=== PATIENT | female | born 1980 | race Caucasian/White ===

== ENCOUNTER 2020-03-27 12:08 | Outpatient (RCR) | payer MEDICARE, BC, SELFPAY ==
--- NOTE | 2020-03-20 09:28 | PCWOUND ---
WOCN NOTE Patient did not show up for appointment.called and rescheduled her for next week.
[2020-03-27 16:06] VITALS: BMI 35.7
--- NOTE | 2020-04-05 13:38 | PCWOUND ---
wocn note patient did not show up for appointment, left message to reschedule.
== END 2020-06-11 08:37 | disposition home or self-care (01) ==
LOC: ANHWOC 12:08
PROVIDERS: PCP Family Medicine; Visit Provider Family Medicine
DX: I87.2 Venous insufficiency (chronic) (peripheral) (principal)
CPT/HCPCS: 99213; G0463

== ENCOUNTER 2020-08-02 12:00 | Outpatient (RCR) | payer MEDICARE, BC, SELFPAY ==
--- NOTE | 2020-07-04 14:26 | PCWOUND ---
WOCN NOTE patient with venous stasis ulcers to the bilateral lower legs. To the left leg there are 8 isolated spots with the largest noted on the order form. It takes 1 mepilex transfer, 1 ABD pad and 1 roll of kerlex to cover. To the right lower leg she has large area of maceration and 2 isolated ulcers on the posterior leg, it takes 2 mepilex transfers, 2 ABD pads and 1 roll of kerlex to cover.
--- NOTE | 2020-07-31 07:55 | PCWOUND ---
WOCN NOTE patient called and cancelled appointment due to family emergency. rescheduled for .
--- NOTE | 2020-08-16 11:30 | PCWOUND ---
WOCN NOTE Patient called and cancel appointment for today due to weather. rescheduled for next .
--- NOTE | 2020-08-23 14:00 | PCWOUND ---
WOCN NOTE Patient did not show up or call to cancel appointment.
== END 2020-09-17 08:23 | disposition home or self-care (01) ==
LOC: ANHWOC 12:00
PROVIDERS: PCP Family Medicine; Visit Provider Family Medicine
DX: S81.801D Unspecified open wound, right lower leg, subsequent encounter (principal)
CPT/HCPCS: 99213; 99214; G0463

== ENCOUNTER 2020-08-13 02:05 | Emergency (ER) | payer MEDICARE, BC, SELFPAY ==
[2020-08-13 02:08] VITALS: BP 146/83; PULSE 90; RESP 18; TEMP 36.4; O2SAT 99
[2020-08-13] MEDS: oxyCODONE HCL (*CRX) 5 MG TAB IR PO (02:40)
--- NOTE | 2020-08-13 03:42 | ED.LOWEXIN ---
HPI - Extremity Injury (Lower) General Chief Complaint: Extremity Injury, Lower Stated Complaint: leg pain Time Seen by Provider: 08/13/20 02:19 History of Present Illness HPI Narrative: Patient is a 40-year-old female who presents ER with lower extremity pain. 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 She follows with wound care. Patient takes [place] for pain. She gets it 1 month at a time. Unfortunately she is used up her allotment will not get another refill for another week to week and a half. No new swelling or redness of the legs. Related Data Home Medications Medication Instructions Recorded Confirmed cinacalcet [Sensipar] 60 mg PO DAILY 05/19/19 03/27/20 sevelamer carbonate [Renvela] 3,200 mg PO TID 05/19/19 03/27/20 warfarin 15 mg PO DAILY 08/13/20 Allergies Allergy/AdvReac Type Severity Reaction Status Date / Time cefazolin Allergy Severe Stopped Verified 03/15/20 10:07 Breathing Sulfa (Sulfonamide Allergy Unknown Unknown Verified 03/15/20 10:07 Antibiotics) vancomycin Allergy Unknown Unknown Verified 03/15/20 10:07 cefepime Allergy rash Verified 03/15/20 10:07 Review of Systems Constitutional: Constitutional: Denies chills, Denies fever(s) and Denies weakness Musculoskeletal: Musculoskeletal: Denies back pain, Denies arthralgias, Denies joint swelling and Denies muscle cramps Comments: Chronic leg pain Integumentary/Breasts: Skin/Breast: Denies pruritus, Denies rash and Reports skin ulcer (Chronic) [facility] Past Medical History Medical History (Updated 08/13/20 @ 03:45 by Gregor Covarrubias MD) Bronchitis Dialysis patient AGUIAR (dyspnea on exertion) Fistula Renal disease Skin pain Smoking Stage 4 chronic kidney disease Surgical History Surgical History H/O heart valve replacement with mechanical valve History of cholecystectomy History of thyroidectomy Hx of tubal ligation Family History Family History Mother Family history of osteoporosis Asthma Family history of kidney disease Father Family history of blood dyscrasia Asthma Other Diabetes mellitus Family history of cardiovascular disease Social History Social History Smoking packs per day: 0.5 Smoking cigarettes per day: 10.0 Years smoked: 25 Smoking pack-years: 12.50 Smoking status: Current every day smoker Second hand tobacco smoke exposure: Yes Alcohol intake: never Gender identity (if verbalized by the patient): Female Exam Narrative: Exam Narrative: GENERAL: Well-appearing, well-nourished, and in no acute distress. HEAD: Normocephalic, atraumatic. EXTREMITIES: Normal range of motion. Chronic venous stasis changes to lower extremities. SKIN: Warm, dry, no rash. Calciphylaxis to the legs bilaterally without evidence of cellulitis or necrosis. No deep tunneling. NEURO: Alert and oriented x3. PSYCH: Normal mood and affect. Course Course Emergency Course: Oxycodone x1. Will not give any additional medications given the fact that she has not adhered to her chronic pain schedule. Vital Signs Vital signs: Vital Signs Temperature 97.5 F L 08/13/20 02:08 Pulse Rate 90 08/13/20 02:08 Respiratory Rate 18 08/13/20 02:08 Blood Pressure 146/83 H 08/13/20 02:08 Pulse Oximetry 99 08/13/20 02:08 Temperature 97.5 F L 08/13/20 02:08 Pulse Rate 90 08/13/20 02:08 Respiratory Rate 18 08/13/20 02:08 Blood Pressure 146/83 H 08/13/20 02:08 Pulse Oximetry 99 08/13/20 02:08 Discharge Plan Discharge Clinical Impression: Calciphylaxis Patient Disposition: Home, Self-Care Condition: Stable Instructions: Chronic Wounds (ED) Additional Instructions: Return the ER if you have chest pain or shortness of breath, you cannot keep down food or water,
[2020-08-13 04:00] VITALS: BP 152/97; PULSE 86; RESP 18; O2SAT 99
== END 2020-08-13 04:02 | disposition home or self-care (01) ==
PROVIDERS: Emergency Provider Emergency Medicine; PCP Family Medicine
DX: E83.59 Other disorders of calcium metabolism (principal); N18.6 End stage renal disease; Z99.2 Dependence on renal dialysis; Z95.2 Presence of prosthetic heart valve; Z79.01 Long term (current) use of anticoagulants; E89.0 Postprocedural hypothyroidism; F17.210 Nicotine dependence, cigarettes, uncomplicated
CPT/HCPCS: 99283; A9270

== ENCOUNTER 2021-05-22 15:30 | Emergency (ER) | payer MEDICARE, BC, SELFPAY ==
--- NOTE | ~2021-05-22 | XR_ITS ---
EXAMINATION: XR chest 1V portable DATE: 05/22/2021 16:35 INDICATION: Shortness of breath and cough TECHNIQUE: frontal view of the chest was obtained. COMPARISON: Chest radiograph dated 03/16/2019 FINDINGS: Opacities in the right mid to lower lung zone with blunting at the costophrenic angle. Left lung erin ins clear. Cardiomegaly with pulmonary vascular congestion but without julia pulmonary edema. Median sternotomy wires with cardiac valve repairs likely mitral and tricuspid. IMPRESSION: 1. Opacities in the right mid to lower lung zone. Unclear whether this includes elevation of the righ t hemidiaphragm and small right pleural effusion or a moderate-sized subpulmonic effusion with associ ated atelectasis and/or pneumonia. 2. Cardiomegaly with pulmonary vascular congestion but without julia pulmonary edema. Reviewed, dictated and finalized at location A. IAL DUTY NURSE IMPRESSION: 1. Opacities in the right mid to lower lung zone. Unclear whether this includes elevation of the right hemidiaphragm and small right pleural effusion or a mod erate-sized subpulmonic effusion with associated atelectasis and/or pneumonia. 2. Cardiomegaly with pulmonary vascular congestion but without julia pulmonary edema.
[2021-05-22 15:32] VITALS: BP 121/62; PULSE 96; RESP 14; TEMP 36.7; O2SAT 95
[2021-05-22 15:55] VITALS: BP 112/62; PULSE 92; RESP 22; O2SAT 95
--- NOTE | 2021-05-22 16:19 | ECG_ITS ---
Measurements Intervals [place] Rate: 90 P: 98 SD: 107 QRS: 46 QRSD: 97 T: 92 QT: 397 QTc: 487 Interpretive Statements SINUS RHYTHM WITH SHORT SD INTERVAL INCOMPLETE RIGHT BUNDLE BRANCH BLOCK LOW QRS VOLTAGE IN PRECORDIAL LEADS BORDERLINE T WAVE ABNORMALITY- ANT/HIGH LAT LEADS BASELINE ARTIFACT- I, II, III, AVR, AVL,A VF, V3-V6 BORDERLINE ECG Electronically Signed On 05-22-2021 19:53:33 FIELD AIDE by Carlos Grant D.O.
[2021-05-22 16:49] LABS: Basophils Absolute Auto 0.1 K/mm3 (0.0-0.1); Basophils Percent Auto 2.1 % (0.2-1.2); Eosinophils Absolute Auto 0.4 K/mm3 (0-0.3); Eosinophils Percent Auto 7.6 % (0-4.4); Hematocrit 30.1 % (37.0-47.0); Hemoglobin 9.9 g/dL (12.0-15.0); Immature Granulocyte Absolute 0.02 K/mm3 (0.00-0.031); Immature Granulocyte Percent A 0.4 % (0-0.5); Lymphocytes Absolute Auto 0.79 K/mm3 (0.9-3.2); Mean Corpuscular HGB Conc 32.9 g/dl (32-36); Mean Corpuscular Hemoglobin 31.2 pg (26-34); Mean Platelet Volume 9.3 fl (7.4-10.4); Monocytes Absolute Auto 0.4 K/mm3 (0.1-0.6); Neutrophils Absolute Auto 3.5 K/mm3 (1.3-6.7); Neutrophils Percent Auto 66.9 % (45.5-73.1); Platelet Count Result 158 k/mm3 (150-375); Red Blood Count 3.17 M/mm3 (4.2-5.4); Red Cell Distribution Width 15.6 % (11.5-14.5); White Blood Count 5.3 K/mm3 (4.5-10.0)
[2021-05-22] MEDS: IPRATROPIUM BR 0.02% INH SOLN 0.5 MG/2.5 ML VIAL INHALATION (17:01)
[2021-05-22] MEDS: ALBUTEROL SULFATE NEB 2.5 MG/0.5 ML INH 5 MG INHALATION (17:02)
[2021-05-22 17:04] LABS: Alanine Aminotransferase 11 U/L (4-35); Albumin Level 4.2 g/dL (3.5-5.1); Alkaline Phosphatase 230 U/L (38-126); Anion Gap 6 mmol/L (8-16); Aspartate Amino Transferase 29 U/L (14-36); Bilirubin,Total 2.2 mg/dL (0.2-1.3); Blood Urea Nitrogen 17 mg/dL (7-17); Calcium 9.7 mg/dL (8.4-10.2); Carbon Dioxide 39 mmol/L (22-30); Chloride 92 mmol/L (98-107); Estimated CRCL calculation 20 ml/min; Estimated Glomerular Filt Rate 13; Glucose 91 mg/dL (65-110); Potassium 3.6 mmol/L (3.4-5.0); Sodium 137 mmol/L (137-145)
[2021-05-22 17:16] LABS: Troponin I 0.028 ng/mL (0.000-0.034)
--- NOTE | 2021-05-22 17:28 | ED.SOB ---
HPI - SOB/Dyspnea General Chief Complaint: Shortness of Breath/Dyspnea Stated Complaint: sob, dialysis pt Time Seen by Provider: 05/22/21 16:14 Source: patient and family Mode of arrival: ambulatory Limitations: no limitations History of Present Illness HPI Narrative: 41-year-old with a history of hypertension ESRD on hemodialysis, smoker here with complaints of shortness of breath since last few days. She denies any fever or chills. Has occasional nonproductive cough. Patient states that she had a dialysis this morning. MD elicited complaint: shortness of breath Related Data Home Medications Medication Instructions Recorded Confirmed cinacalcet [Sensipar] 60 mg PO DAILY 05/19/19 03/27/20 sevelamer carbonate [Renvela] 3,200 mg PO TID 05/19/19 03/27/20 Allergies Allergy/AdvReac Type Severity Reaction Status Date / Time cefazolin Allergy Severe Stopped Verified 03/15/20 10:07 Breathing Sulfa (Sulfonamide Allergy Unknown Unknown Verified 03/15/20 10:07 Antibiotics) vancomycin Allergy Unknown Unknown Verified 03/15/20 10:07 cefepime Allergy rash Verified 03/15/20 10:07 Review of Systems Review of Systems: All systems reviewed & are unremarkable except as noted in HPI and below Constitutional: Constitutional: Reports no additional constitutional complaints Eyes: Eyes: Reports no additional eye complaints ENT: Reports system reviewed and no additional complaints, except as documented Cardiovascular: Cardiovascular: Reports no additional cardiovascular complaints Respiratory: Respiratory: Reports as per HPI Gastrointestinal: Gastrointestinal: Reports no additional gastrointestinal complaints Musculoskeletal: Musculoskeletal: Reports no additional musculoskeletal complaints Neurologic: Reports system reviewed and no additional complaints, except as documented [facility] Past Medical History Medical History (Updated 05/22/21 @ 17:31 by Gideon Knutson MD) Bronchitis Dialysis patient AGUIAR (dyspnea on exertion) Fistula Renal disease Skin pain Smoking Stage 4 chronic kidney disease Surgical History Surgical History H/O heart valve replacement with mechanical valve History of cholecystectomy History of thyroidectomy Hx of tubal ligation Family History Family History Mother Family history of osteoporosis Asthma Family history of kidney disease Father Family history of blood dyscrasia Asthma Other Diabetes mellitus Family history of cardiovascular disease Social History Social History Smoking packs per day: 0.5 Smoking cigarettes per day: 10.0 Years smoked: 25 Smoking pack-years: 12.50 Smoking status: Current every day smoker Second hand tobacco smoke exposure: Yes Alcohol intake: never Gender identity (if verbalized by the patient): Female Exam Narrative: GENERAL: well-appearing, well-nourished, and in no acute distress. HEAD: Normocephalic, atraumatic. EYES: PERRLA and EOMI. ENT: Nares clear, no rhinorrhea or epistaxis. Mucous membranes moist. NECK: Supple. CHEST: Decreased air entry, mild wheeze. HEART: Regular rate and rhythm. No murmur heard. Normal peripheral pulses. ABDOMEN: Soft, nontender, nondistended, normal active bowel sounds. EXTREMITIES: Normal range of motion. No edema. SKIN: Warm, dry, no rash. NEURO: No focal deficits. Alert and oriented x3. PSYCH: Normal mood and affect. Course Course Emergency Course: Patient feeling much better after nebulizer treatment. Informed her about her lab work, chest x-ray findings. advised her to quit smoking , continue home medications. Vital Signs Vital signs: Vital Signs Temperature 36.7 C 05/22/21 15:32 Pulse Rate 96 05/22/21 15:32 Respiratory Rate 14 05/22/21 15:32 Blood Pressure 121/62 05/22/21 15:32 Pulse Oximetry 95
[2021-05-22 17:41] VITALS: BP 109/61; PULSE 89; RESP 20; O2SAT 94
[2021-05-22 18:06] VITALS: BP 115/66; PULSE 86; RESP 22; O2SAT 94
== END 2021-05-22 18:07 | disposition home or self-care (01) ==
PROVIDERS: Emergency Provider Family Medicine; PCP Family Medicine
DX: J44.9 Chronic obstructive pulmonary disease, unspecified (principal); N18.6 End stage renal disease; Z99.2 Dependence on renal dialysis; F17.210 Nicotine dependence, cigarettes, uncomplicated
CPT/HCPCS: 36415; 71045; 80053; 84484; 85025; 93005; 94640; 99284

== ENCOUNTER 2021-06-15 16:08 | Observation (INO) | payer MEDICARE, BC, SELFPAY ==
[2021-06-15] VITALS (27 sets, daily range): BP systolic 96–148; BP diastolic 52–90; PULSE 69–90; RESP 15–36; TEMP 36.3; O2SAT 94–100; BMI 30.9
--- NOTE | ~2021-06-15 | XR_ITS ---
EXAMINATION: XR chest 1V portable EXAM DATE: 06/15/2021 16:43 INDICATION: Chest pain. TECHNIQUE: Portable AP frontal chest x-ray was obtained. Comparison is made to prior examination from 05/22/2021. FINDINGS: Small to moderate-sized right pleural effusion with adjacent atelectasis. There is cardiome shane and pulmonary vascular congestion. Sternotomy wires are present without findings to suggest ster nal dehiscence. Cardiac valve replacement. IMPRESSION: 1. Cardiomegaly, pulmonary vascular congestion and small to moderate pleural effusion. 2. Adjacent basilar segmental atelectasis. Pneumonia not excludable. Reviewed, dictated and finalized at location A. NDING PSYCHIATRIST IMPRESSION: 1. Cardiomegaly, pulmonary vascular congestion and small to moderate pleural e ffusion. 2. Adjacent basilar segmental atelectasis. Pneumonia not excludable.
--- NOTE | 2021-06-15 16:11 | ECG_ITS ---
Measurements Intervals [place] Rate: 86 P: 104 ME: 109 QRS: 26 QRSD: 88 T: 31 QT: 402 QTc: 482 Interpretive Statements SINUS RHYTHM WITH SHORT ME INTERVAL BORDERLINE ST-T WAVE ABNORMALITY- HIGH LATERAL LEADS BASELINE ARTIFACT- I, II, III, V4-V6 BORDERLINE ECG Electronically Signed On 06-15-2021 17:05:07 DURABILITY TECHNICIAN by Carlos Grant D.O.
[2021-06-15 16:29] LABS: Basophils Absolute Auto 0.1 K/mm3 (0.0-0.1); Basophils Percent Auto 1.5 % (0.2-1.2); Eosinophils Absolute Auto 0.5 K/mm3 (0-0.3); Eosinophils Percent Auto 9.7 % (0-4.4); Hematocrit 34.4 % (37.0-47.0); Hemoglobin 11.1 g/dL (12.0-15.0); Immature Granulocyte Absolute 0.01 K/mm3 (0.00-0.031); Immature Granulocyte Percent A 0.2 % (0-0.5); Lymphocytes Absolute Auto 0.76 K/mm3 (0.9-3.2); Lymphocytes Percent Auto 13.9 % (18.3-44.2); Mean Corpuscular HGB Conc 32.3 g/dl (32-36); Mean Corpuscular Hemoglobin 30.8 pg (26-34); Mean Corpuscular Volume 95.6 fl (80-100); Mean Platelet Volume 9.4 fl (7.4-10.4); Monocytes Absolute Auto 0.7 K/mm3 (0.1-0.6); Monocytes Percent Auto 11.9 % (2.6-8.5); Neutrophils Absolute Auto 3.5 K/mm3 (1.3-6.7); Neutrophils Percent Auto 62.8 % (45.5-73.1); Platelet Count Result 146 k/mm3 (150-375); Red Cell Distribution Width 15.7 % (11.5-14.5); White Blood Count 5.5 K/mm3 (4.5-10.0)
[2021-06-15 16:40] LABS: Alanine Aminotransferase 14 U/L (4-35); Albumin Level 4.4 g/dL (3.5-5.1); Alkaline Phosphatase 248 U/L (38-126); Anion Gap 10 mmol/L (8-16); Aspartate Amino Transferase 37 U/L (14-36); Bilirubin,Total 2.3 mg/dL (0.2-1.3); Blood Urea Nitrogen 38 mg/dL (7-17); Calcium 9.7 mg/dL (8.4-10.2); Carbon Dioxide 37 mmol/L (22-30); Chloride 88 mmol/L (98-107); Estimated CRCL calculation 13 ml/min; Estimated Glomerular Filt Rate 8; Glucose 94 mg/dL (65-110); INR 3.3; Lipase 216 U/L (23-300); Potassium 4.5 mmol/L (3.4-5.0); Prothrombin Time 32.4 Seconds (11.1-14.7); Sodium 135 mmol/L (137-145)
[2021-06-15 16:41] LABS: Partial Thromboplastin Time 55.9 SECONDS (22.3-36.8)
--- NOTE | 2021-06-15 17:43 | ED.GENADULT ---
HPI - General Adult General Chief complaint: Chest Pain Stated complaint: chest pain -SOB last night Time Seen by Provider: 06/15/21 16:23 History of Present Illness HPI narrative: Patient is a 41-year-old female who presents ER with chest pain or shortness of breath. Chest pain is intermittent on the left side. Still nonradiating. Last for couple seconds at a time. Patient also endorses shortness of breath that is worse with laying back. She started to develop coughing with laying back as well. She endorses exertional dyspnea. She has history of end-stage renal disease and underwent dialysis yesterday. She reports she is 12 pounds heavier than her typical weight. She is unsure that they got enough fluid off of her. Her food service substitute is Dr. Lutz. Patient reports compliance with home medications. She is anuric. Related Data Home Medications Medication Instructions Recorded Confirmed cinacalcet [Sensipar] 60 mg PO DAILY 05/19/19 03/27/20 sevelamer carbonate [Renvela] 3,200 mg PO TID 05/19/19 03/27/20 Allergies Allergy/AdvReac Type Severity Reaction Status Date / Time cefazolin Allergy Severe Stopped Verified 06/15/21 18:11 Breathing Sulfa (Sulfonamide Allergy Unknown Unknown Verified 06/15/21 18:11 Antibiotics) vancomycin Allergy Unknown Unknown Verified 06/15/21 18:11 cefepime Allergy rash Verified 06/15/21 18:11 Review of Systems Review of Systems: All systems reviewed & are unremarkable except as noted in HPI and below Constitutional: Constitutional: Denies chills, Denies fever(s) and Denies weakness ENT: Denies nasal congestion and Denies sore throat Cardiovascular: Cardiovascular: Reports chest pain, Denies rapid heart rate and Denies radiating jaw, neck or arm pain Respiratory: Respiratory: Denies chest congestion, Reports cough, Reports dyspnea and Denies wheezing Gastrointestinal: Gastrointestinal: Denies abdominal pain, Denies diarrhea, Denies nausea and Denies vomiting [facility] Past Medical History Medical History (Updated 06/15/21 @ 20:08 by Gregor Covarrubias MD) Bronchitis Dialysis patient AGUIAR (dyspnea on exertion) Fistula Renal disease Skin pain Smoking Stage 4 chronic kidney disease Surgical History Surgical History H/O heart valve replacement with mechanical valve History of cholecystectomy History of thyroidectomy Hx of tubal ligation Family History Family History Mother Family history of osteoporosis Asthma Family history of kidney disease Father Family history of blood dyscrasia Asthma Other Diabetes mellitus Family history of cardiovascular disease Social History Social History Smoking packs per day: 0.5 Smoking cigarettes per day: 10.0 Years smoked: 25 Smoking pack-years: 12.50 Smoking status: Current every day smoker Second hand tobacco smoke exposure: Yes Alcohol intake: never Gender identity (if verbalized by the patient): Female Exam Narrative: GENERAL: Chronically ill-appearing, well-nourished, and in no acute distress. HEAD: Normocephalic, atraumatic. EYES: PERRL and EOMI. ENT: Mucous membranes moist. CHEST: Bibasilar rales noted. No respiratory distress. HEART: Regular rate and rhythm. Normal peripheral pulses. ABDOMEN: Soft, nontender, nondistended. EXTREMITIES: Normal range of motion. Chronic venous stasis changes. SKIN: Warm, dry, calciphylaxis most prominent in the lower extremities but also present throughout the abdomen and upper extremities. NEURO: Alert and oriented x3. PSYCH: Normal mood and affect. Course Course Emergency Course: Patient will be admitted to the hospitalist service. Nephrology consulted and will arrange dialysis for tomorrow. Vital Signs Vital signs: Vital Signs Pulse Rate 88 06/15/21 16:14 Respiratory Rate 20 06/15/21 16:1
--- NOTE | 2021-06-15 18:30 | PM.IMHP ---
H&P: HPI History of Present Illness Date/Time: 06/15/21 18:30 Chief Complaint: Chest pain and shortness of breath. Narrative: This is a pleasant 41-year-old female with end-stage renal disease on hemodialysis and history of mechanical mitral valve replacement on long-term anticoagulation who presented to the emergency department earlier today for evaluation of chest pain and shortness of breath. Last evening simply while sitting down she developed an aching discomfort in her left anterior chest which was self-limiting and resolved within approximately 2 minutes time. She has had similar, intermittent episodes of left anterior chest discomfort since that time, all resolving without intervention. Additionally she has felt a bit more short of breast today than usual and reports being 12 lb heavier today than when she waited for dialysis yesterday. She is not necessarily more short of breath with this chest discomfort and she denies associated nausea, vomiting, and sweats. She has pretty significant and chronic lower extremity edema which she states is unchanged. She denies calf pain and tenderness. She reports compliance with her warfarin and INR today is 3.3. She has no history of coronary artery disease and she has not had exertional chest pain. At the time my evaluation she has no specific complaints but did have a brief episode of chest discomfort. Review of Systems Review of Systems: Twelve systems were reviewed. No fever, chills, or sweats. No recent cold or flu symptoms. She has not had any falls or injuries. She denies orthopnea and PND. No cough. No sick contacts. She no longer urinates. [facility] Past Medical History Medical History (Updated 06/15/21 @ 22:51 by Amanda Gibbons PA-C) Calciphylaxis Chronic anticoagulation On warfarin due to mechanical mitral valve replacement. End-stage renal disease on hemodialysis Secondary to focal segmental glomerulosclerosis. She is a patient of Dr. Apurva Lutz and has dialysis on Thursday, Thursday, and Thursday. Grade IV diastolic dysfunction Tobacco dependence Surgical History Surgical History (Updated 06/15/21 @ 22:46 by Amanda Gibbons PA-C) History of cholecystectomy (2019) History of mitral valve replacement with mechanical valve (2015) Reportedly as a result of endocarditis. History of parathyroidectomy History of tubal ligation (2003) Status post creation of arteriovenous fistula Left upper extremity. Family History Family History Mother Family history of osteoporosis Asthma Family history of kidney disease Father Family history of blood dyscrasia Asthma Other Diabetes mellitus Family history of cardiovascular disease Social History Social History (Updated 06/15/21 @ 22:47 by Amanda Gibbons PA-C) Social History: Surrogate decision maker: Danie Sheets (spouse) or Lizzie Estrella (mother). Code status: Full code. Smoking packs per day: 0.75 Smoking cigarettes per day: 15.0 Years smoked: 28 Smoking pack-years: 21.00 Smoking status: Former smoker Second hand tobacco smoke exposure: Yes Additional smoking assessment comments: Quit smoking in April 2021. Alcohol intake: never Substance use: former Substance use type: marijuana Living arrangements: with family Additional occupation/education comments: Disabled. Meds Home Medications and Allergies Home Medications Medication Instructions Recorded Confirmed Type cinacalcet [Sensipar] 60 mg PO DAILY 05/19/19 03/27/20 History sevelamer carbonate [Renvela] 3,200 mg PO TID 05/19/19 03/27/20 History warfarin 20 mg PO HS 06/15/21 06/15/21 History Allergies Allergy/AdvReac Type Severity Reaction Status Date / Time cefazolin Allergy Severe Stopped Verified 06/15/21 18:11 Breathing Sulfa (Sulfonamide Allergy Unknown Unknown Verified 06/15/21 18:11 Antibiotics) vancomycin Allergy Unknown Unknown Verified 06/15
--- NOTE | 2021-06-15 18:34 | PM.CNNEP ---
Assessment and Plan Assessment and plan (1) Grade IV diastolic dysfunction: Code(s): I51.89 - Other ill-defined heart diseases Status: Chronic (2) Volume overload: Code(s): E87.70 - Fluid overload, unspecified Status: Acute (3) Chronic anticoagulation: Code(s): Z79.01 - termite exterminator (current) use of anticoagulants Status: Acute (4) End-stage renal disease on hemodialysis: Code(s): N18.6 - End stage renal disease; Z99.2 - Dependence on renal dialysis Status: Acute (5) Tobacco dependence: Code(s): F17.200 - Nicotine dependence, unspecified, uncomplicated Status: Acute (6) Volume overload: Code(s): E87.70 - Fluid overload, unspecified Status: Acute (7) Pulmonary edema: Code(s): J81.1 - Chronic pulmonary edema Status: Acute (8) Chronic pain: Code(s): G89.29 - Other chronic pain Status: Acute (9) Leg wound, right: Code(s): S81.801A - Unspecified open wound, right lower leg, initial encounter Status: Acute (10) Obesity: Code(s): E66.9 - Obesity, unspecified Status: Acute (11) Calciphylaxis: Code(s): E83.59 - Other disorders of calcium metabolism Status: Inactive (12) COPD (chronic obstructive pulmonary disease): Qualifiers: COPD type: unspecified COPD Qualified Code(s): J44.9 - Chronic obstructive pulmonary disease, unspecified Code(s): J44.9 - Chronic obstructive pulmonary disease, unspecified Status: Inactive Additional Plan 1. will give extra dialyss for dry ultrafiltration/ fluid removal tomorrow and then likely discharge pt usu will never agree to stay more than 1 night in the hospital. 2. reinforced to stop smoking. History of Present Illness Chief Complaint Chief complaint: chf exacerbation Review of Systems Review of Systems: sob with orthopnea- doesn't think enough fluid was removed off dialysis and reports being 12 lbs= about 5 kg about her dw. er team called 6:00pm requesting admission consult for vol overload. pt with 96% oxygen saturation but w vol overload on cxr and complaints. spoke to HD TEAM LISSETTE WITH [facility] CL[facility] APPLICATION SUPPORT ENGINEER TEAM AND PT WILL BE DIALYZED TOMORROW. Respiratory: Respiratory: Reports hemoptysis, Reports dyspnea, Reports dyspnea on exertion and Reports other (orthopnea) [facility] Past Medical History Medical History (Updated 06/15/21 @ 22:51 by Amanda Gibbons PA-C) Calciphylaxis Chronic anticoagulation On warfarin due to mechanical mitral valve replacement. End-stage renal disease on hemodialysis Secondary to focal segmental glomerulosclerosis. She is a patient of Dr. Apurva Lutz and has dialysis on Thursday, Thursday, and Thursday. Grade IV diastolic dysfunction Tobacco dependence Surgical History Surgical History (Updated 06/15/21 @ 22:46 by Amanda Gibbons PA-C) History of cholecystectomy (2018) History of mitral valve replacement with mechanical valve (2015) Reportedly as a result of endocarditis. History of parathyroidectomy History of tubal ligation (2003) Status post creation of arteriovenous fistula Left upper extremity. Family History Family History Mother Family history of osteoporosis Asthma Family history of kidney disease Father Family history of blood dyscrasia Asthma Other Diabetes mellitus Family history of cardiovascular disease Social History Social History (Updated 06/15/21 @ 22:47 by Amanda Gibbons PA-C) Social History: Surrogate decision maker: Danie Sheets (spouse) or Lizzie Estrella (mother). Code status: Full code. Smoking packs per day: 0.75 Smoking cigarettes per day: 15.0 Years smoked: 28 Smoking pack-years: 21.00 Smoking status: Former smoker Second hand tobacco smoke exposure: Yes Additional smoking assessment comments: Quit smoking in April 2021. Alcohol intake: never S
[2021-06-15] MEDS: ASPIRIN 81 MG CHEWABLE TABLET 324 MG PO (18:53)
[2021-06-15 19:34] LABS: Troponin I 0.025 ng/mL (0.000-0.034)
--- NOTE | 2021-06-15 21:30 | ADMGEN ---
This patient, Yudith Sheets, was admitted to IMU Room 201-01. Patient/family oriented to hospital policies and general routines including ID bracelet, bed and alarms, visiting hours, pain management, procedures, bathroom and other care routines, personal items, smoking policy, room service/diet, and visiting hours. Information on how to activate the Rapid Response Team has been discussed. Patient/Family are encouraged to report perceived risks to care and to ask questions if they do not understand what they are told or what they should do.
[2021-06-16] VITALS (24 sets, daily range): BP systolic 88–109; BP diastolic 32–65; PULSE 62–91; RESP 16–22; TEMP 0–36.7; O2SAT 97–100
[2021-06-16] MEDS: WARFARIN (*PBKC) 10 MG TABLET 20 MG PO (00:22)
[2021-06-16] MEDS: CINACALCET 30 MG TABLET 60 MG PO (00:23)
--- NOTE | 2021-06-16 04:29 | PM.PNNEP ---
Progress Note: A&P Assessment and Plan (1) Grade IV diastolic dysfunction: Code(s): I51.89 - Other ill-defined heart diseases Status: Chronic (2) Volume overload: Code(s): E87.70 - Fluid overload, unspecified Status: Acute (3) Chest pain: Code(s): R07.9 - Chest pain, unspecified Status: Acute (4) Chronic anticoagulation: Code(s): Z79.01 - retirement (current) use of anticoagulants Status: Acute (5) End-stage renal disease on hemodialysis: Code(s): N18.6 - End stage renal disease; Z99.2 - Dependence on renal dialysis Status: Acute (6) Tobacco dependence: Code(s): F17.200 - Nicotine dependence, unspecified, uncomplicated Status: Acute (7) Volume overload: Code(s): E87.70 - Fluid overload, unspecified Status: Acute (8) Pulmonary edema: Code(s): J81.1 - Chronic pulmonary edema Status: Acute (9) Chronic pain: Code(s): G89.29 - Other chronic pain Status: Acute (10) Leg wound, right: Code(s): S81.801A - Unspecified open wound, right lower leg, initial encounter Status: Acute (11) End stage chronic kidney disease: Code(s): N18.6 - End stage renal disease Status: Acute (12) Obesity: Code(s): E66.9 - Obesity, unspecified Status: Acute (13) H/O mitral valve replacement with mechanical valve: Code(s): Z95.2 - Presence of prosthetic heart valve Status: Acute (14) Dialysis patient: Code(s): Z99.2 - Dependence on renal dialysis Status: Acute Additional Plan challenging uf today- goal 3-4 liters ok to go home later have tried repeatedly to coordinate the pt coming to the hd clinic instead of er for extra fluid removal- she says yesterday she was ok in the morning and felt worse as the day went along. Subjective Date/time seen: 06/16/21 11:29 hemodialysis being started for fluid removal only- anticipate discharge after dialysis for fluid removal today. Objective Data Vital Signs Vital Signs: Vital Signs - 24 hr 06/15/21 23:47 06/16/21 00:00 06/16/21 02:00 Temperature 36.3 C L Pulse Rate 86 68 77 Respiratory Rate 20 Blood Pressure 96/56 L Pulse Oximetry 98 06/16/21 03:52 06/16/21 04:00 06/16/21 06:00 Temperature 36.4 C L Pulse Rate 88 86 90 Respiratory Rate 20 Blood Pressure 103/62 Pulse Oximetry 97 06/16/21 08:00 06/16/21 08:52 06/16/21 10:00 Temperature 35.9 C L Pulse Rate 91 88 68 Respiratory Rate 22 H Blood Pressure 107/58 L Pulse Oximetry 97 06/16/21 12:05 06/16/21 12:15 06/16/21 12:30 Temperature 36.7 C Pulse Rate 66 65 66 Respiratory Rate 20 Blood Pressure 107/59 L 105/53 L 103/32 L Pulse Oximetry 06/16/21 12:45 06/16/21 13:00 06/16/21 13:15 Temperature Pulse Rate 65 63 62 Respiratory Rate Blood Pressure 101/47 L 95/52 L 91/46 L Pulse Oximetry 06/16/21 13:30 06/16/21 13:45 06/16/21 14:01 Temperature Pulse Rate 63 63 63 Respiratory Rate Blood Pressure 88/45 L 91/46 L 99/51 L Pulse Oximetry 06/16/21 14:15 06/16/21 14:30 06/16/21 14:45 Temperature Pulse Rate 64 64 65 Respiratory Rate Blood Pressure 109/53 L 99/54 L 105/55 L Pulse Oximetry 06/16/21 15:15 06/16/21 15:30 06/16/21 15:45 Temperature Pulse Rate 64 64 65 Respiratory Rate Blood Pressure 90/42 L 108/53 L 107/55 L Pulse Oximetry 06/16/21 16:00 Temperature 36.4 C Pulse Rate 64 Respiratory Rate 16 Blood Pressure 109/51 L Pulse Oximetry 100 Intake/Output Intake/Output: Intake & Output 06/13/21 06/14/21 06/15/21 06/16/21 23:59 23:59 23:59 23:59 Intake Total 690 Output Total 4000 Balance -3310 Meds/Results Radiology Results: ITS Impressions Chest X-Ray 06/15/21 16:46 IMPRESSION: 1. Cardiomegaly, pulmonary vascular congestion and small to moderate pleural effusion. 2. Adjacent basilar segmental atelectasis. Pneumonia not ex
[2021-06-16 06:34] LABS: Hepatitis B Surface Antigen Negative (Negative)
[2021-06-16 06:39] LABS: Hepatitis B Core IgM Result Negative (Negative)
[2021-06-16 06:52] LABS: Hepatitis C Virus Antibody Negative (Negative)
[2021-06-16] MEDS: SEVELAMER CARBONATE 800 MG TABLET 3200 MG PO (08:47)
--- NOTE | 2021-06-16 10:27 | PM.IMPN ---
Progress Note: A&P Assessment and Plan (1) Chest pain: Code(s): R07.9 - Chest pain, unspecified Status: Acute Assessment and Plan: Patient presented with chest pain and appropriately troponin were drawn an EKG was performed. EKG was reviewed and did show borderline ST T-wave abnormalities in the high lateral leads. Her troponins have thus far remained flat and within normal limits and it is unlikely that this represents acute coronary syndrome, at least by history. Echocardiogram has been ordered and is pending at the time of this dictation. (2) Volume overload: Code(s): E87.70 - Fluid overload, unspecified Status: Acute Assessment and Plan: This has been a chronic issue for this patient. She is completely anuric and dependent on renal replacement therapy. She does not order scale at the moment and therefore does not weigh herself at home. She is markedly edematous and apparently is up [address] Ltuz has been consulted for dialysis. Patient was counseled to monitor her fluid intake and with herself daily to avoid additional episode of fluid overload. Patient scheduled for dialysis by [facility] today. (3) End-stage renal disease on hemodialysis: Code(s): N18.6 - End stage renal disease; Z99.2 - Dependence on renal dialysis Status: Acute Assessment and Plan: Patient carries a diagnosis of ESRD on chronic hemodialysis complicated by calciphylaxis. Patient has been on sodium thiosulfate in the past but currently is not taking it. Given her young age we will encourage patient to be evaluated for possible on a kidney transplant. This would be the definitive treatment of her calciphylaxis. 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 Monitor daily INR. Subjective Date/time seen: 06/16/21 10:00 This is a pleasant 41-year-old female with end-stage renal disease on hemodialysis and history of mechanical mitral valve replacement on long-term anticoagulation who presented to the emergency department earlier today for evaluation of chest pain and shortness of breath. Last evening simply while sitting down she developed an aching discomfort in her left anterior chest which was self-limiting and resolved within approximately 2 minutes time. She has had similar, intermittent episodes of left anterior chest discomfort since that time, all resolving without intervention. Additionally she has felt a bit more short of breast today than usual and reports being 12 lb heavier today than when she waited for dialysis yesterday. She is not necessarily more short of breath with this chest discomfort and she denies associated nausea, vomiting, and sweats. She has pretty significant and chronic lower extremity edema which she states is unchanged. She denies calf pain and tenderness. She reports compliance with her warfarin and INR today is 3.3. She has no history of coronary artery disease and she has not had exertional chest pain. At the time my evaluation she has no specific complaints but did have a brief episode of chest discomfort. S: Patient examined at the bedside. She is comfortable. She reports bilateral lower extremity edema. Review of Systems Review of Systems: All systems reviewed & are unremarkable except as noted in HPI and below Constitutional: Constitutional: Reports as per HPI Eyes: Eyes: Reports as per HPI ENT: Reports as per HPI Cardiovascular: Cardiovascular: Reports as per HPI Respiratory: Respiratory: Reports as per HPI Gastrointestinal: Gastrointestinal: Reports as per HPI Genitourinary: Genitourinary: Reports as per HPI Musculoskeletal: Musculoskeletal: Reports as per HPI Integumentary/Breasts: Skin/Breast: Reports as per HPI Neurologic: Reports as per HPI Psychiatric: Psychia
--- NOTE | 2021-06-16 10:33 | PM.IMPN ---
Subjective Date/time seen: 06/16/21 10:33 Objective Data Vital Signs Vital Signs: Vital Signs - 24 hr 06/15/21 16:14 06/15/21 17:04 06/15/21 17:05 Temperature Pulse Rate 88 80 84 Respiratory Rate 20 20 22 H Blood Pressure 129/81 118/73 Pulse Oximetry 98 99 100 06/15/21 17:55 06/15/21 18:01 06/15/21 18:02 Temperature Pulse Rate 75 71 77 Respiratory Rate 25 H 30 H 36 H Blood Pressure 109/61 Pulse Oximetry 99 98 94 06/15/21 18:10 06/15/21 18:16 06/15/21 18:21 Temperature Pulse Rate 79 81 77 Respiratory Rate 17 15 15 Blood Pressure 148/90 H 113/67 Pulse Oximetry 96 100 99 06/15/21 18:31 06/15/21 18:32 06/15/21 18:45 Temperature Pulse Rate 77 79 84 Respiratory Rate 30 H 16 21 H Blood Pressure 106/58 L Pulse Oximetry 99 100 100 06/15/21 19:12 06/15/21 19:15 06/15/21 19:16 Temperature Pulse Rate 79 70 70 Respiratory Rate 29 H 23 H 22 H Blood Pressure 104/59 L Pulse Oximetry 98 97 98 06/15/21 19:30 06/15/21 19:31 06/15/21 19:45 Temperature Pulse Rate 78 69 72 Respiratory Rate 26 H 22 H 22 H Blood Pressure 103/55 L Pulse Oximetry 96 97 100 06/15/21 19:46 06/15/21 20:04 06/15/21 20:15 Temperature Pulse Rate 75 70 70 Respiratory Rate 22 H 30 H 29 H Blood Pressure 109/59 L Pulse Oximetry 100 100 98 06/15/21 20:31 06/15/21 20:32 06/15/21 20:45 Temperature Pulse Rate 70 85 87 Respiratory Rate 24 H 23 H 26 H Blood Pressure 107/54 L Pulse Oximetry 06/15/21 21:30 06/15/21 22:00 06/15/21 23:47 Temperature 97.4 F L 97.4 F L Pulse Rate 90 71 86 Respiratory Rate 20 20 Blood Pressure 105/52 L 96/56 L Pulse Oximetry 95 98 06/16/21 00:00 06/16/21 02:00 06/16/21 03:52 Temperature 97.5 F L Pulse Rate 68 77 88 Respiratory Rate 20 Blood Pressure 103/62 Pulse Oximetry 97 06/16/21 04:00 06/16/21 06:00 06/16/21 08:00 Temperature Pulse Rate 86 90 91 Respiratory Rate Blood Pressure Pulse Oximetry 06/16/21 08:52 Temperature 96.6 F L Pulse Rate 88 Respiratory Rate 22 H Blood Pressure 107/58 L Pulse Oximetry 97 Intake/Output Intake/Output: Intake & Output 06/13/21 06/14/21 06/15/21 06/16/21 23:59 23:59 23:59 23:59 Output Total 0 Balance 0 Meds/Results Medications: Active Medications Generic Name Dose Route Start Last Admin Trade Name Freq PRN Reason Stop Dose Admin Acetaminophen 650 mg 06/15/21 18:42 Acetaminophen 325 Mg Tablet PO Q4H PRN Mild Pain (1-3) or Fever Hydrocodone Bitart/Acetaminophen 1 tab 06/15/21 18:42 Hydrocodone/Acetaminophen (*Crx) 5-325 Mg Tablet PO Q4H PRN Pain Rated 4-6 Cinacalcet 60 mg 06/15/21 23:55 06/16/21 00:23 Cinacalcet 30 Mg Tablet PO 07/15/21 23:54 60 mg HS MARICHUY Administration Albumin Human 50 mls @ 999 mls/hr 06/16/21 01:42 Albutein IVPB 06/17/21 01:41 Q10M PRN HYPOTENSION Morphine Sulfate 4 mg 06/15/21 18:42 Morphine Sulfate (*Crx) 4 Mg/Ml Inj IV PUSH Q2H PRN Pain Rated 7-10 Promethazine HCl 12.5 mg 06/15/21 18:42 Promethazine Hcl 25 Mg/Ml Ampul IV PUSH Q6H PRN Nausea Sevelamer Carbonate 3,200 mg 06/16/21 08:00 06/16/21 08:47 Sevelamer Carbonate 800 Mg Tablet PO 3,200 mg TIDWM MARICHUY Administration Warfarin Sodium 20 mg 06/15/21 23:55 06/16/21 00:22 Warfarin (*Pbkc) 10 Mg Tablet PO 20 mg HS MARICHUY Administration Radiology Results: ITS Impressions Chest X-Ray 06/15/21 16:46 IMPRESSION: 1. Cardiomegaly, pulmonary vascular congestion and small to moderate pleural effusion. 2. Adjacent basilar segmental atelectasis. Pneumonia not excludable. Labs Labs: Laboratory Results - last 24 hr 06/15/21 06/15/21 06/15/21 16:24 16:24 16:24 WBC 5.5 RBC 3.60 L Hgb 11.1 L Hct 34.4 L MCV 95.6 MCH 30.8 MCHC 32.3 RDW 15.7 H Plt Count 146 L MPV 9.4 Immature Gran % (Auto) 0.2 Neut % (A
[2021-06-16] MEDS: ALBUMIN HUMAN 25% 12.5 GM/50ML 100 ML 100 GM (13:30)
--- NOTE | 2021-06-16 16:08 | PC.NURSE ---
Report received by Consuelo with Dialysis. Patient finished with Dialysis at 1607.
[2021-06-16 16:10] LABS: INR 3.1; Prothrombin Time 30.7 Seconds (11.1-14.7)
--- NOTE | 2021-06-16 16:37 | PM.DS ---
DS: Admitting Diagnosis Discharge Date 16 June 2021 Admitting Diagnosis Volume overload DS: Discharge Diagnosis Discharge Diagnosis (1) Chest pain: Code(s): R07.9 - Chest pain, unspecified Status: Acute Assessment and Plan: Patient presented with chest pain and appropriately troponin were drawn an EKG was performed. EKG was reviewed and did show borderline ST T-wave abnormalities in the high lateral leads. Her troponins have thus far remained flat and within normal limits and it is unlikely that this represents acute coronary syndrome, at least by history. Echocardiogram has been ordered and is pending at the time of this dictation. (2) Volume overload: Code(s): E87.70 - Fluid overload, unspecified Status: Acute Assessment and Plan: This has been a chronic issue for this patient. She is completely anuric and dependent on renal replacement therapy. She does not order scale at the moment and therefore does not weigh herself at home. She is markedly edematous and apparently is up [address] Lutz has been consulted for dialysis. Patient was counseled to monitor her fluid intake and with herself daily to avoid additional episode of fluid overload. Patient scheduled for dialysis by Renal today. (3) End-stage renal disease on hemodialysis: Code(s): N18.6 - End stage renal disease; Z99.2 - Dependence on renal dialysis Status: Acute Assessment and Plan: Patient carries a diagnosis of ESRD on chronic hemodialysis complicated by calciphylaxis. Patient has been on sodium thiosulfate in the past but currently is not taking it. Given her young age we will encourage patient to be evaluated for possible on a kidney transplant. This would be the definitive treatment of her calciphylaxis. (4) Chronic anticoagulation: Code(s): Z79.01 - correction (current) use of anticoagulants Status: Acute Assessment and Plan: INR is therapeutic at 3.3 given presence of mechanical mitral valve. Monitor daily INR. DS: Summary Hospital Course Reason for hospitalization: Shortness of breath and swelling Hospital Course: Patient was admitted with shortness of breath and swelling. She was seen by her cargo services coordinator Dr. Lutz. She tolerated ultrafiltration for fluid removal. Shortness of breath resolved. She tolerated her diet. She was able ambulate independently. She was discharged home to be followed up as an outpatient. Status at Discharge Functional status at discharge: independent ambulation Overall status at discharge: patient is back to baseline Time Spent with Patient Time attestation: Total time spent providing and/or coordinating discharge services: Time spent: Greater than 30 minutes Exam Narrative: HEENT: PERRL, sclerae nonicteric, pharyngeal mucosa pink and intact NECK: No JVD, adenopathy, or thyromegaly CHEST: COARSE BS WITH DECR AT BASES. Normal effort. HEART: NL S1/S2, regular, no murmur ABDOMEN: BS+, soft, nontender, no mass, no bruits EXTREMITIES: No cyanosis, TRACE ANKLE EDEMA NEUROLOGIC: CN intact and symmetric to inspection. MUSCULOSKELETAL: Tone and strength symmetric. PSYCH: Alert. Oriented to person, place, and time. DS: Data Data Completed and Pending Labs on day of discharge: Labs from last 24 hours 06/16/21 06/16/21 06/15/21 15:55 04:42 21:43 PT 30.7 H INR 3.1 APTT Sodium Potassium Chloride Carbon Dioxide Anion Gap BUN Creatinine Estim Creat Clear Calc Estimated GFR Glucose Calcium Total Bilirubin AST ALT Alkaline Phosphatase Troponin I 0.020 Total Protein Albumin Lipase Hep Bs Antigen Negative Hep B Core IgM Ab Negative Hepatitis C Ab Screen Negative 06/15/21 06/15/21 06/15/21 19:08 16:24 16:24 PT 32.4 H INR 3.3 APTT 55.9 H Sodium 135 L Potassium 4.5 Chloride 88 L Carbon Dioxide 37 H Anio
== END 2021-06-16 17:45 | disposition home or self-care (01) ==
LOC: ANHED 20:08 → ANHICU 20:33 → ANHIMU 20:34
PROVIDERS: Internal Medicine; Internal Medicine Nephrology; Admitting Provider Internal Medicine; Emergency Provider Emergency Medicine; PCP Family Medicine; Visit Provider Internal Medicine
DX: R07.9 Chest pain, unspecified (principal); I51.89 Other ill-defined heart diseases; E87.70 Fluid overload, unspecified; N18.6 End stage renal disease; J81.1 Chronic pulmonary edema; Z79.51 Long term (current) use of inhaled steroids; Z79.01 Long term (current) use of anticoagulants; Z99.2 Dependence on renal dialysis; Z87.891 Personal history of nicotine dependence; Z95.2 Presence of prosthetic heart valve; S81.801A Unspecified open wound, right lower leg, initial encounter; G89.29 Other chronic pain; E83.59 Other disorders of calcium metabolism; J44.9 Chronic obstructive pulmonary disease, unspecified; E66.9 Obesity, unspecified; Z68.30 Body mass index [BMI] 30.0-30.9, adult
CPT/HCPCS: 36415; 71045; 80053; 83690; 84484; 85025; 85610; 85730; 86705; 86803; 87340; 93005; 96374; 99285; A9270; G0257; G0378; J1644; J7030; P9047

== ENCOUNTER 2021-08-26 06:03 | Emergency (ER) | payer MEDICARE, BC, SELFPAY ==
[2021-08-26 06:11] VITALS: BP 99/55; PULSE 87; RESP 18; TEMP 36.6; O2SAT 100
[2021-08-26 06:30] LABS: Basophils Absolute Auto 0.1 K/mm3 (0.0-0.1); Basophils Percent Auto 2.3 % (0.2-1.2); Eosinophils Absolute Auto 0.5 K/mm3 (0-0.3); Eosinophils Percent Auto 10.8 % (0-4.4); Hematocrit 29.6 % (37.0-47.0); Hemoglobin 9.5 g/dL (12.0-15.0); Immature Granulocyte Absolute 0.01 K/mm3 (0.00-0.031); Immature Granulocyte Percent A 0.2 % (0-0.5); Mean Corpuscular HGB Conc 32.1 g/dl (32-36); Mean Corpuscular Hemoglobin 31.3 pg (26-34); Mean Corpuscular Volume 97.4 fl (80-100); Mean Platelet Volume 9.9 fl (7.4-10.4); Monocytes Absolute Auto 0.5 K/mm3 (0.1-0.6); Monocytes Percent Auto 11.5 % (2.6-8.5); Neutrophils Absolute Auto 2.3 K/mm3 (1.3-6.7); Neutrophils Percent Auto 52.2 % (45.5-73.1); Platelet Count Result 148 k/mm3 (150-375); Red Blood Count 3.04 M/mm3 (4.2-5.4); Red Cell Distribution Width 16.9 % (11.5-14.5); White Blood Count 4.3 K/mm3 (4.5-10.0)
[2021-08-26 06:41] LABS: Alanine Aminotransferase 16 U/L (4-35); Albumin Level 4.2 g/dL (3.5-5.1); Alkaline Phosphatase 215 U/L (38-126); Anion Gap 15 mmol/L (8-16); Aspartate Amino Transferase 36 U/L (14-36); Bilirubin,Total 1.8 mg/dL (0.2-1.3); Blood Urea Nitrogen 87 mg/dL (7-17); Calcium 8.6 mg/dL (8.4-10.2); Carbon Dioxide 28 mmol/L (22-30); Chloride 91 mmol/L (98-107); Estimated CRCL calculation 7 ml/min; Estimated Glomerular Filt Rate 3; Glucose 107 mg/dL (65-110); Potassium 5.3 mmol/L (3.4-5.0); Sodium 134 mmol/L (137-145)
--- NOTE | 2021-08-26 06:49 | PC.NURSE ---
EDP at bedside for pelvic exam
[2021-08-26 06:57] VITALS: BP 104/67; BP 105/60; BP 107/52; PULSE 68; PULSE 73; PULSE 77
[2021-08-26 07:01] LABS: INR 3.1
[2021-08-26 07:02] LABS: Partial Thromboplastin Time 52.2 SECONDS (22.3-36.8)
--- NOTE | 2021-08-26 07:02 | ED.GENADULT ---
HPI - General Adult General Chief complaint: Vaginal Bleeding Stated complaint: vaginal bleeding Time Seen by Provider: 08/26/21 06:26 Source: patient and RN notes reviewed Limitations: no limitations History of Present Illness HPI narrative: 41-year-old female presents the emergency department for evaluation of vaginal bleeding. Patient states that she has not had a period for extended period of time possibly a few months. Patient states that she did start her period last week and has since had some heavy vaginal bleeding. Patient became concerned today because she did have some large clots. Patient states that she does on Coumadin. Patient denies any hemorrhagic bleeding but only clots. Patient reports abdominal cramping consistent with her menstrual cycle. Patient denies any nausea vomiting or diarrhea. Patient denies any chest pain or shortness of breath. Patient denies any dizziness or lightheadedness. Related Data Home Medications Medication Instructions Recorded Confirmed cinacalcet [Sensipar] 60 mg PO HS 05/19/19 06/15/21 sevelamer carbonate [Renvela] 3,200 mg PO TID 05/19/19 06/15/21 warfarin 20 mg PO HS 06/15/21 06/15/21 Allergies Allergy/AdvReac Type Severity Reaction Status Date / Time cefazolin Allergy Severe Stopped Verified 08/26/21 06:25 Breathing Sulfa (Sulfonamide Allergy Unknown Unknown Verified 08/26/21 06:25 Antibiotics) vancomycin Allergy Unknown Unknown Verified 08/26/21 06:25 cefepime Allergy rash Verified 08/26/21 06:25 Review of Systems Review of Systems: CONSTITUTIONAL: Denies fever, chills, or sweats. EYES: Denies visual changes, redness, or discharge. ENT: Denies rhinorrhea, congestion, sore throat, or otalgia. CARDIOVASCULAR: Denies chest pain, palpitations, or edema. RESPIRATORY: Denies cough or dyspnea. GASTROINTESTINAL: Denies abdominal pain, nausea, vomiting, or diarrhea. GENITOURINARY: Vaginal bleeding and cramping SKIN: Denies rash or itching. MUSCULOSKELETAL: Denies back pain, joint pain, or myalgia. NEUROLOGIC: Denies headache, numbness, or weakness. PSYCHIATRIC: Denies anxiety or depression. All systems reviewed & are unremarkable except as noted in HPI and below PMFSH Past Medical History Medical History (Updated 08/27/21 @ 00:00 by Background Daemon) Calciphylaxis Chronic anticoagulation On warfarin due to mechanical mitral valve replacement. End-stage renal disease on hemodialysis Secondary to focal segmental glomerulosclerosis. She is a patient of Dr. Apurva Lutz and has dialysis on Thursday, Thursday, and Thursday. Grade IV diastolic dysfunction Tobacco dependence Surgical History Surgical History (Updated 06/15/21 @ 22:46 by Amanda Gibbons PA-C) History of cholecystectomy (2018) History of mitral valve replacement with mechanical valve (2015) Reportedly as a result of endocarditis. History of parathyroidectomy History of tubal ligation (2003) Status post creation of arteriovenous fistula Left upper extremity. Family History Family History Mother Family history of osteoporosis Asthma Family history of kidney disease Father Family history of blood dyscrasia Asthma Other Diabetes mellitus Family history of cardiovascular disease Social History Social History (Updated 06/15/21 @ 22:47 by Amanda Gibbons PA-C) Social History: Surrogate decision maker: Danie Sheets (spouse) or Lizzie Wulf (mother). Code status: Full code. Smoking packs per day: 0.75 Smoking cigarettes per day: 15.0 Years smoked: 28 Smoking pack-years: 21.00 Smoking status: Former smoker Second hand tobacco smoke exposure: Yes Additional smoking assessment comments: Quit smoking in April 2021. Alcohol intake: never Substance use: former Substance use type: marijuana Additional occupation/education comments: Disabled. Exam Narrative: APPEARANCE: Well appearing, n
[2021-08-26 07:12] VITALS: BP 103/52; PULSE 69; RESP 18; O2SAT 100
== END 2021-08-26 07:20 | disposition home or self-care (01) ==
PROVIDERS: Emergency Provider Emergency Medicine; PCP Family Medicine
DX: N93.9 Abnormal uterine and vaginal bleeding, unspecified (principal); N18.6 End stage renal disease; Z99.2 Dependence on renal dialysis; E83.59 Other disorders of calcium metabolism; Z95.2 Presence of prosthetic heart valve; E89.2 Postprocedural hypoparathyroidism; Z87.891 Personal history of nicotine dependence; Z79.01 Long term (current) use of anticoagulants
CPT/HCPCS: 36415; 80053; 85025; 85610; 85730; 86850; 86900; 86901; 99284

== ENCOUNTER 2021-12-10 22:25 | Emergency (ER) | payer MEDICARE, BC, SELFPAY ==
--- NOTE | ~2021-12-10 | CT_ITS ---
EXAMINATION: CT abdomen pelvis wo con DATE: 12/11/2021 00:04 INDICATION: Right lower quadrant abdominal pain radiating to the back. TECHNIQUE: Computed tomography (CT) of the abdomen and pelvis was performed without intravenous contr ast. Automated exposure control and iterative reconstruction technique were employed. The dose-length product was 1277.62 mGy-cm. COMPARISON: CT abdomen and pelvis 05/19/2019, 08/20/17 FINDINGS: The visualized portions of the lung bases demonstrate mild atelectasis. There is smooth sep dana thickening, consistent with mild pulmonary edema. No pleural effusion. Cardiomegaly is noted. The re are changes of mitral and tricuspid valve replacements. No pericardial effusion. The liver demonst rates hypertrophy of left lateral segment and surface nodularity, consistent with cirrhosis. There is severe splenomegaly. There is a splenorenal venous shunt. There are changes of cholecystectomy. The pancreas and adrenal glands are normal. There is severe atrophy of the [place] kidneys. There are cyst s in left kidney measuring up to 2.3 cm. There is an 8.1 cm mass in the left adnexa. There is a 3.3 c m hyperdense mass in the right ovary. There are no dilated loops of bowel. The appendix is normal. Th ere is mild retroperitoneal lymphadenopathy and mild pelvic adenopathy. There is widespread stranding of the body wall fat with areas of calcification, likely fat necrosis. There are erosions at the sac roiliac joints. The spine demonstrates Schmorl's nodes at all levels and sclerosis of the endplates. These findings are consistent with renal osteodystrophy. IMPRESSION: 1. Cirrhosis of the liver with portal venous hypertension. 2. Bilateral adnexal masses, which may be benign or malignant. Pelvis ultrasound is recommended. 3. Mild retroperitoneal and pelvic lymphadenopathy. Reviewed, dictated and finalized at location A. IMPRESSION: 1. Cirrhosis of the liver with portal venous hypertension. 2. Bilateral adnexal masses, which may be benign or malignant. Pelvis ultrasoun d is recommended. 3. Mild retroperitoneal and pelvic lymphadenopathy.
[2021-12-10 22:27] VITALS: BP 120/64; PULSE 92; RESP 18; TEMP 36.6; O2SAT 99
--- NOTE | 2021-12-10 22:51 | ED.ABDPAIN ---
HPI - Abdominal Pain General Chief Complaint: Abdominal Pain Stated Complaint: right lower abd pain Time Seen by Provider: 12/10/21 22:36 History of Present Illness HPI narrative: 41-year-old female who states that she started having pain in her right lower quadrant that seem to go to her back, it started earlier today, she is has not gotten any relief from it and it is constant, denies any nausea or vomiting, fevers or chills, loss of appetite or diarrhea. Has never had pain like this before, no history of kidney stones or appendicitis. She is a dialysis patient. Related Data Home Medications Medication Instructions Recorded Confirmed cinacalcet 60 mg tablet (Sensipar) 60 mg PO HS 05/19/19 06/15/21 sevelamer carbonate 800 mg tablet 3,200 mg PO TID 05/19/19 06/15/21 (Renvela) Allergies Allergy/AdvReac Type Severity Reaction Status Date / Time cefazolin Allergy Severe Stopped Verified 12/10/21 23:17 Breathing Sulfa (Sulfonamide Allergy Unknown Unknown Verified 12/10/21 23:17 Antibiotics) vancomycin Allergy Unknown Unknown Verified 12/10/21 23:17 cefepime Allergy rash Verified 12/10/21 23:17 Review of Systems Review of Systems: CONST: No fever. HEENT: No sore throat C/V: No chest pain RESP: Lingering cough GI: Reports abdominal pain : No dysuria. M/S: No joint pain. SKIN: Chronic rash on legs NEURO: [No headache or focal numbness or weakness] PSYCH: [No depression] [facility] Past Medical History Medical History Calciphylaxis Chronic anticoagulation On warfarin due to mechanical mitral valve replacement. End-stage renal disease on hemodialysis Secondary to focal segmental glomerulosclerosis. She is a patient of Dr. Apurva Lutz and has dialysis on Thursday, Thursday, and Thursday. Grade IV diastolic dysfunction Tobacco dependence Surgical History Surgical History History of cholecystectomy (2018) History of mitral valve replacement with mechanical valve (2015) Reportedly as a result of endocarditis. History of parathyroidectomy History of tubal ligation (2003) Status post creation of arteriovenous fistula Left upper extremity. Family History Family History Mother Family history of osteoporosis Asthma Family history of kidney disease Father Family history of blood dyscrasia Asthma Other Diabetes mellitus Family history of cardiovascular disease Social History Social History Social History: Surrogate decision maker: Danie Sheets (spouse) or Lizzie Estrella (mother). Code status: Full code. Smoking packs per day: 0.75 Smoking cigarettes per day: 15.0 Years smoked: 28 Smoking pack-years: 21.00 Smoking status: Former smoker Second hand tobacco smoke exposure: Yes Additional smoking assessment comments: Quit smoking in April 2021. Alcohol intake: never Substance use: former Substance use type: marijuana Additional occupation/education comments: Disabled. Exam Narrative: EXAMINATION OF ORGAN SYSTEMS/BODY AREAS: Constitutional: Vital signs per nursing GENERAL: Appears to be in pain HEAD: Normal with no signs of head trauma. EYES: EOMI, conjunctiva normal ENT: Hearing grossly intact LUNGS: Nonlabored breathing. HEART: [Regular rate and rhythm] ABD: [Soft], tender to palpation in the right lower quadrant EXT: Normal range of motion SKIN: [No rashes or lesions.] NEURO: [Alert and oriented x 3. No gross focal sensory or strength deficits.] PSYCH: Normal affect Course Vital Signs Vital signs: Vital Signs Temperature 97.9 F 12/10/21 22:27 Pulse Rate 92 12/10/21 22:27 Respiratory Rate 18 12/10/21 22:27 Blood Pressure 120/64 12/10/21 22:27 Pulse Oximetry 99 12/10/21 22:27 Oxygen Delivery Room Air 12/10/21 22:27 Temperature 97
[2021-12-10 22:59] LABS: Basophils Absolute Auto 0.1 K/mm3 (0.0-0.1); Eosinophils Absolute Auto 0.3 K/mm3 (0-0.3); Eosinophils Percent Auto 7.5 % (0-4.4); Hematocrit 27.4 % (37.0-47.0); Hemoglobin 8.4 g/dL (12.0-15.0); Immature Granulocyte Absolute 0.01 K/mm3 (0.00-0.031); Immature Granulocyte Percent A 0.2 % (0-0.5); Lymphocytes Absolute Auto 0.88 K/mm3 (0.9-3.2); Lymphocytes Percent Auto 19.3 % (18.3-44.2); Mean Corpuscular HGB Conc 30.7 g/dl (32-36); Mean Corpuscular Volume 101.1 fl (80-100); Mean Platelet Volume 8.9 fl (7.4-10.4); Monocytes Absolute Auto 0.4 K/mm3 (0.1-0.6); Monocytes Percent Auto 9.2 % (2.6-8.5); Neutrophils Absolute Auto 2.8 K/mm3 (1.3-6.7); Neutrophils Percent Auto 61.8 % (45.5-73.1); Platelet Count Result 145 k/mm3 (150-375); Red Blood Count 2.71 M/mm3 (4.2-5.4); Red Cell Distribution Width 17.6 % (11.5-14.5); White Blood Count 4.6 K/mm3 (4.5-10.0)
[2021-12-10 23:15] LABS: Alanine Aminotransferase 11 U/L (6-35); Albumin Level 3.9 g/dL (3.5-5.1); Alkaline Phosphatase 229 U/L (38-126); Anion Gap 7 mmol/L (8-16); Aspartate Amino Transferase 33 U/L (14-36); Blood Urea Nitrogen 36 mg/dL (7-17); Carbon Dioxide 34 mmol/L (22-30); Chloride 95 mmol/L (98-107); Estimated CRCL calculation 10 ml/min; Estimated Glomerular Filt Rate 6; Glucose 94 mg/dL (65-110); Lipase 95 U/L (23-300); Potassium 4.3 mmol/L (3.4-5.0); Sodium 136 mmol/L (137-145)
[2021-12-10] MEDS: MORPHINE SULFATE (*CRX) 4 MG/ML INJ IV PUSH (23:19)
[2021-12-10 23:33] LABS: Serum Qual hCG Negative
[2021-12-10 23:34] LABS: SPREG INTERNAL CONTROL Positive
[2021-12-11 01:35] VITALS: BP 99/68; PULSE 85; RESP 20; O2SAT 98
== END 2021-12-11 01:37 | disposition home or self-care (01) ==
PROVIDERS: Emergency Provider Emergency Medicine; PCP Family Medicine
DX: K74.60 Unspecified cirrhosis of liver (principal); N18.6 End stage renal disease; Z99.2 Dependence on renal dialysis; E89.2 Postprocedural hypoparathyroidism; Z95.2 Presence of prosthetic heart valve; Z87.891 Personal history of nicotine dependence; Z79.01 Long term (current) use of anticoagulants; K76.6 Portal hypertension; N94.89 Other specified conditions associated with female genital organs and menstrual cycle
CPT/HCPCS: 36415; 74176; 80053; 83690; 84703; 85025; 96374; 99284; J2270

== ENCOUNTER 2022-03-16 10:17 | Emergency (ER) | payer MEDICARE, BC, SELFPAY ==
--- NOTE | 2022-03-16 10:20 | ED.URI ---
HPI - URI/Sore Throat General Chief Complaint: Ear Stated Complaint: left ear /moves gets sick Time Seen by Provider: 03/16/22 10:20 Source: patient and RN notes reviewed History of Present Illness HPI Narrative: Patient is a 42-year-old female who presents the urgent care with complaints of decreased hearing in the left ear, nausea and vomiting. Patient states the left ear has started approximately 2 days ago with a slight runny nose. Patient denies of any other upper respiratory complaints. Patient states that she started nausea and vomiting today. Patient has not taken anything [id number] for her symptoms. Patient is a stage IV renal failure patient who had dialysis on Thursday. Patient denies of any abdominal pain or diarrhea. Denies a fever. No other acute complaints. No acute distress noted. Patient aware of the plan of care. Some parts of this dictation were generated by voice recognition software and may contain typographical and/or grammatical inaccuracies. Related Data Home Medications Medication Instructions Recorded Confirmed cinacalcet 60 mg tablet (Sensipar) 60 mg PO HS 05/19/19 03/16/22 sevelamer carbonate 800 mg tablet 3,200 mg PO TID 05/19/19 03/16/22 (Renvela) hydrocodone 10 mg-acetaminophen 10 tablet PO Q6-8H PRN Pain, Severe 03/16/22 03/16/22 325 mg tablet Allergies Allergy/AdvReac Type Severity Reaction Status Date / Time cefazolin Allergy Severe Stopped Verified 03/16/22 10:32 Breathing Sulfa (Sulfonamide Allergy Unknown Unknown Verified 03/16/22 10:32 Antibiotics) vancomycin Allergy Unknown Unknown Verified 03/16/22 10:32 cefepime Allergy rash Verified 03/16/22 10:32 Review of Systems Review of Systems: CONSTITUTIONAL: Denies fever, chills, or sweats. EYES: Denies visual changes, redness, or discharge. ENT: Denies rhinorrhea, congestion, sore throat. She reports of decreased hearing in the left ear CARDIOVASCULAR: Denies chest pain, palpitations, or edema. RESPIRATORY: Denies cough or dyspnea. GASTROINTESTINAL: Reports of nausea and vomiting GENITOURINARY: Denies dysuria or hematuria. SKIN: Denies rash or itching. MUSCULOSKELETAL: Denies back pain, joint pain, or myalgia. NEUROLOGIC: Denies headache, numbness, or weakness. Reports of dizziness All other systems reviewed are negative, except as documented in HPI. [facility] Past Medical History Medical History Calciphylaxis Chronic anticoagulation On warfarin due to mechanical mitral valve replacement. End-stage renal disease on hemodialysis Secondary to focal segmental glomerulosclerosis. She is a patient of Dr. Apurva Lutz and has dialysis on Thursday, Thursday, and Thursday. Grade IV diastolic dysfunction Tobacco dependence Surgical History Surgical History History of cholecystectomy (2018) History of mitral valve replacement with mechanical valve (2015) Reportedly as a result of endocarditis. History of parathyroidectomy History of tubal ligation (2003) Status post creation of arteriovenous fistula Left upper extremity. Family History Family History Mother Family history of osteoporosis Asthma Family history of kidney disease Father Family history of blood dyscrasia Asthma Other Diabetes mellitus Family history of cardiovascular disease Social History Social History Social History: Surrogate decision maker: Danie Sheets (spouse) or Lizzielexie Estrella (mother). Code status: Full code. Smoking packs per day: 0.75 Smoking cigarettes per day: 15.0 Years smoked: 28 Smoking pack-years: 21.00 Smoking status: Former smoker Second hand tobacco smoke exposure: Yes Additional smoking assessment comments: Quit smoking in April 2021. Alcohol intake: never Substance use: former Substance use type:
[2022-03-16 10:22] VITALS: BP 108/55; PULSE 58; RESP 18; TEMP 36.6; O2SAT 95
[2022-03-16 10:36] VITALS: BP 108/55; PULSE 58; RESP 18; TEMP 36.6; O2SAT 95
== END 2022-03-16 10:49 | disposition left against medical advice (07) ==
PROVIDERS: Emergency Provider Nurse Practitioner Family
DX: R42 Dizziness and giddiness (principal); R11.2 Nausea with vomiting, unspecified; Z87.891 Personal history of nicotine dependence; N18.5 Chronic kidney disease, stage 5; Z99.2 Dependence on renal dialysis; Z79.01 Long term (current) use of anticoagulants
CPT/HCPCS: 99213; G0463

== ENCOUNTER 2022-08-05 12:58 | Outpatient (CLI) | payer MEDICARE, OTHER, SELFPAY | END 2022-08-05 12:59 | disposition home or self-care (01) | LOC: ANHBWCAUD 12:59 | DX: H90.3 Sensorineural hearing loss, bilateral (principal) | CPT/HCPCS: 92557; 92567 ==

== ENCOUNTER 2023-07-06 14:23 | Emergency (ER) | payer MEDICARE, OTHER, SELFPAY ==
[2023-07-06] VITALS (23 sets, daily range): BP systolic 97–117; BP diastolic 50–69; PULSE 40–49; RESP 15–26; TEMP 36.3; O2SAT 95–100
--- NOTE | ~2023-07-06 | XR_ITS ---
EXAMINATION: XR chest 2V Exam Date/Time: 07/06/2023 16:35 [facility] HISTORY: cough RECENT DIALYSIS AND LOW BP Comparison: 06/15/2021. RESULT: Lines, tubes, and devices: Right lower neck surgical clips. Fractured inferior sternotomy wire in st able position. Cardiac valve replacements. Lungs and pleura: Diffuse reticulonodular opacities. Trace posterior right costophrenic angle blunti ng Cardiomediastinal silhouette: Stable. Other: No acute osseous or upper abdominal finding. IMPRESSION: Pulmonary opacities may represent bronchiolitis, as can be seen with atypical infection, asthma, aspi ration, and small airways disease. Trace right pleural effusion. Reviewed, dictated and finalized at location K. RANCHER IMPRESSION: Pulmonary opacities may represent bronchiolitis, as can be seen with atypical i nfection, asthma, aspiration, and small airways disease. Trace right pleural ef fusion.
--- NOTE | 2023-07-06 16:39 | ED.GENADULT ---
HPI - General Adult General Chief complaint: Recheck/Abnormal Lab/Rx Stated complaint: LOW BP Time Seen by Provider: 07/06/23 15:31 History of Present Illness HPI narrative: 43-year-old female presents emergency department for evaluation of low blood pressure. Patient is on dialysis with history of stage IV renal failure. Patient denies any complaints and patient's blood pressure was improved upon arrival to the emergency department. Related Data Home Medications Medication Instructions Recorded Confirmed cinacalcet 60 mg tablet (Sensipar) 60 mg PO HS 05/19/19 08/27/22 Allergies Allergy/AdvReac Type Severity Reaction Status Date / Time cefazolin Allergy Severe Stopped Verified 07/06/23 14:34 Breathing Sulfa (Sulfonamide Allergy Unknown Unknown Verified 07/06/23 14:34 Antibiotics) vancomycin Allergy Unknown Unknown Verified 07/06/23 14:34 cefepime Allergy rash Verified 07/06/23 14:34 Review of Systems Review of Systems: All systems reviewed & are unremarkable except as noted in HPI and below PMFSH Past Medical History Medical History Calciphylaxis Chronic anticoagulation On warfarin due to mechanical mitral valve replacement. End-stage renal disease on hemodialysis Secondary to focal segmental glomerulosclerosis. She is a patient of Dr. Apurva Lutz and has dialysis on Thursday, Thursday, and Thursday. Grade IV diastolic dysfunction Tobacco dependence Surgical History Surgical History History of cholecystectomy (2018) History of mitral valve replacement with mechanical valve (2015) Reportedly as a result of endocarditis. History of parathyroidectomy History of tubal ligation (2003) Status post creation of arteriovenous fistula Left upper extremity. Family History Family History Mother Family history of osteoporosis Asthma Family history of kidney disease Father Family history of blood dyscrasia Asthma Other Diabetes mellitus Family history of cardiovascular disease Social History Social History Social History: Surrogate decision maker: Danie Sheets (spouse) or Lizzie Estrella (mother). Code status: Full code. Smoking packs per day: 0.75 Smoking cigarettes per day: 15.0 Years smoked: 28 Smoking pack-years: 21.00 Smoking status: Former smoker Second hand tobacco smoke exposure: Yes Additional smoking assessment comments: Quit smoking in April 2021. Alcohol intake: never Substance use: former Substance use type: marijuana Living arrangements: with family Additional occupation/education comments: Disabled. Exam Narrative: APPEARANCE: Well appearing, no pain, no distress, well-nourished. HEAD: normocephalic, atraumatic. EYES: PERRLA/EOMI, conjunctivae clear. NOSE: Normal no drainage EARS:TMS clear with good light reflex. THROAT: Pharynx clear, no exudate. NECK: Supple. No adenopathy, no masses. RESPIRATORY: Airway patent, respirations nonlabored. Clear to auscultation bilaterally, no rales, rhonchi, wheezing. CARDIOVASCULAR: Regular rate and rhythm without murmurs rubs or gallops. ABDOMINAL: Soft, nontender, nondistended, normal bowel sounds MUSCULOSKELETAL: Moves all extremities. Strength/ROM intact, No edema, No calf tenderness. NEURO: Alert. Cranial nerves II through XII intact. Good gait. Good coordination SKIN: Warm, dry. Normal Color Course Course Emergency Course: 43-year-old female presents emergency department for evaluation of low blood pressure. Patient's blood pressure did improve while she has the emergency department. Patient did have some bradycardia but patient was asymptomatic. Patient denies any complaints. Patient was able to ambulate in the emergency department and had no associated lightheaded and dizz
[2023-07-06 17:24] LABS: Influenza A QL RT-PCR Negative (Negative); Influenza B QL RT-PCR Negative (Negative); RSV RNA, RT-PCR Negative (Negative); SARS-CoV-2 RNA PCR Negative (Negative)
== END 2023-07-06 17:46 | disposition home or self-care (01) ==
PROVIDERS: Emergency Provider Emergency Medicine
DX: I95.9 Hypotension, unspecified (principal); Z20.822 Contact with and (suspected) exposure to COVID-19; N18.4 Chronic kidney disease, stage 4 (severe); Z99.2 Dependence on renal dialysis; N26.9 Renal sclerosis, unspecified; Z95.2 Presence of prosthetic heart valve; Z90.49 Acquired absence of other specified parts of digestive tract; Z90.89 Acquired absence of other organs; Z79.01 Long term (current) use of anticoagulants
CPT/HCPCS: 71046; 87637; 99283